=== PATIENT | female | born 1950 | race Caucasian/White ===

== ENCOUNTER 2017-02-09 15:09 | Emergency (ER) | payer OTHER ==
[~2017-02-09] VITALS: Ht 162.6 cm; Wt 100.0 kg
[~2017-02-09 15:09] MED LIST: ASPI325T PO; CLEO300C2 PO; DOXY100T PO; LISI10TA PO; LOVA40TA PO
[2017-02-09 15:15] VITALS: BP 138/77; PULSE 76; RESP 18; TEMP 98.2; O2SAT 98
--- NOTE | 2017-02-09 16:36 | PD ---
HPI Chief Complaint: Back/ Neck Pain or Injury Time Seen by Provider: 16:36 Travel History International Travel<30 days: No Contact w/Intl Traveler<30days: No Traveled to known affect area: No History of Present Illness HPI 66-year-old female presents to the emergency Department with complaint of low back pain 4 weeks. Denies new or recent injury. She says 4 weeks ago she picked up her 12 pound dog and had sudden onset of low back pain. She has been to the emergency department and x-rays were done which were negative per the patient. She is also followed up with her primary care provider, Dr. Chow, who increased her tramadol which is still not working. She said she has received an injection of an anti-inflammatory in the ER which did nothing for her pain. She has tried taking tramadol, gabapentin, and a muscle relaxer with no relief of pain. She has history of bulging disks in her lower back and low back surgery in [address] Hua. She reports paresthesias to her left lower extremity that are unchanged from previous paresthesias. She denies loss of sensation, decreased range of motion to bilateral lower extremities. Reports decreased strength to bilateral lower extremities. Says she is having difficulty ambulating secondary to the pain. Denies dysuria, urgency, frequency , hematuria. Said she had a urinalysis done as outpatient one week ago which was negative for infection. Denies IV drug use. Denies cancer. Denies fever, chills, nausea, vomiting, abdominal pain. Denies encopresis, incontinence, saddle anesthesias. Says she's been using a cane and a walker for support at home. Allergies to Bactrim, bee stings, Cipro, morphine, penicillin. Dr. Chow is primary care provider. No other modifying factors or associated signs and symptoms. 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") Cardiac Catheterization: No Cardiovascular Problems: No High Cholesterol: Yes Chemotherapy: No Congestive Heart Failure: No Diabetes: No Diminished Hearing: No Endocrine: No Gastrointestinal Disorders: No Glaucoma: No Genitourinary: No Hepatitis: No Hiatal Hernia: No Hypertension: Yes Immune Disorder: No Implanted Vascular Access Dvce: No Musculoskeletal: Yes Neurologic: No Psychiatric: No Reproductive: No Respiratory: Yes Immunizations Current: No Myocardial Infarction: No Radiation Therapy: No Thyroid Disease: No Menopausal: Yes : 1 Para: 1 Tubal Ligation: Yes Past Surgical History Abdominal Surgery: No Cardiac Surgery: No Coronary Artery Bypass Graft: No Ear Surgery: No Endocrine Surgery: No Eye Surgery: No Genitourinary Surgery: No Gynecologic Surgery: Yes (TUBAL LIGATION) Neurologic Surgery: No Oral Surgery: No Thoracic Surgery: No Tonsillectomy: Yes Other Surgery: Yes (LEFT CAROTID GLAND REMOVAL) Social History Alcohol Use: No Tobacco Use: No Substance Use: No Allergies-Medications (Allergen,Severity, Reaction): Coded Allergies: Bactrim (Verified Allergy, Severe, RASH,ITCHING, 08/15/11) Bee Sting (Verified Allergy, Severe, Anaphylaxis, 08/15/11) Cipro (Verified Allergy, Severe, RASH, 08/15/11) Morphine (Verified Adverse Reaction, Severe, LEG SHAKING, 08/15/11) Penicillin (Verified Adverse Reaction, Severe, FAINTED., 08/15/11) Reported Meds & Prescriptions Reported Meds & Active Scripts Active Naproxen 500 Mg Tab 500 Mg PO BID 7 Days Lortab (Hydrocodone-Acetaminophen) 5-325 Mg Tab 1 Tab PO Q4-6H PRN Doxycycline Hyclate 100 mg (Doxycycline Hyclate) 100 Mg Tab 100 Mg PO BID Cleocin (Clindamycin HCl) 300 Mg Cap 300 Mg PO QID Reported Aspirin 325 mg (Aspirin) 325 Mg Tab 325 Mg PO DAILY Lisinopril/Hctz 10 mg/12.5 mg 10 mg/12.5 mg Tab 1 Tab PO DAILY Lovastatin 40 Mg Tab 40 Mg PO DAILY Review of Systems Except as stated in HPI: all other systems reviewed are Neg Physical Exam Narrative GENERAL: Well-nourished, well-developed female patient, in no acute distress; tearful and appears painful SKIN: Warm and dry. Midline surgical scar to the lumbar area noted. HEAD: Atraumatic. Normocephalic. EYES: Pupils equal and round. No scleral icterus. No injection or drainage. ENT: Mucosa pink and moist. Airway patent. NECK: Trachea midline. CARDIOVASCULAR: Regular rate. RESPIRATORY: No accessory muscle use. GASTROINTESTINAL: Abdomen soft, non-tender, nondistended. Positive bowel sounds. No hepato-splenomegaly, or palpable masses. No guarding. MUSCULOSKELETAL: Bilateral lower extremities supple and non-tense with 2+ pedal pulses and sensory intact; with full range of motion and 5/5 strength. Unsteady at bedside with weight bearing. Sitting up in bed at 90. No obvious deformities. No clubbing. No cyanosis. No edema. BACK: Midline point tenderness on palpation of the lumbar spine. Tenderness on palpation of right iliosacral area. No obvious deformities. NEUROLOGICAL: Awake and alert. Oriented 3. No obvious cranial nerve deficits. Motor grossly within normal limits. Normal speech. Moves all extremities. 5/5 strength to all extremities. Sensory intact. PSYCHIATRIC: Appropriate mood and affect; insight and judgment normal. Data Data Last Documented VS Vital Signs Date Time Temp Pulse Resp B/P Pulse Ox O2 Delivery O2 Flow Rate FiO2 02/09/17 15:15 98.2 76 18 138/[address] Lumb Spine W/O Contrast (02/09/17 ) Ketorolac Inj (Toradol Inj) (02/09/17 16:45) Orphenadrine Inj (Norflex Inj) (02/09/17 16:45) MDM Medical Decision Making Medical Screen Exam Complete: Yes Emergency Medical Condition: Yes Medical Record Reviewed: Yes Differential Diagnosis Acute exacerbation of chronic low back pain, sciatica, Narrative Course 66-year-old female with midline tenderness on palpation of the lumbar spine. The patient is unsteady on her feet with bearing weight at the bedside. She is tearful and appears painful. No new or recent injury. He of lumbar surgery in 2008. History of bulging disks. Patient has been previously seen and evaluated for this same complaint in the ER and by her primary care provider, Dr. Chow. The ER did x-rays which were negative per the patient. Her primary care provider told her she had sciatica and increased her tramadol. She says she's had never had back pain like this before. 1900: CT concludes: 1. Severe bilateral foraminal narrowing at L5-S1. 2. Mild spinal stenosis and mild to moderate bilateral foraminal narrowing at L4 -L5. 3. Mild spinal stenosis and bilateral foraminal narrowing at L2-L3. 4. Mild bilateral foraminal narrowing at L1-L2 and L3-L4. 5. Grade I anterolisthesis of L5 in relation to S1 with bilateral pars defects at L5. 6. Incidental note is made of uncomplicated sigmoid diverticulosis Results of the CT scan were discussed with the patient and I discussed the incidental finding of diverticulosis with the patient. She was provided a copy of the CT report. I discussed the patient with Dr. Henry, my attending physician , and he recommended Lortab and naproxen for pain control for outpatient. 190: The patient was able to stand at the bedside and take a few steps with support. I discussed and asked the patient if she felt like she needed to be admitted for intractable back pain and she said she would rather go home and does not want to be admitted at this time. She has a cane and a walker at home for support. Lortab, naproxen prescribed for home. Instructed patient to stop taking tramadol she takes the Lortab and she verbalized understanding and agreement. Patient verbalizes understanding and agreement with treatment plan. Patient is medically cleared and stable for discharge. Discussed reasons to return to the emergency department. Instructed patient to follow up with primary care provider. Patient agrees with treatment plan. The patients vital signs are stable and the patient is stable for outpatient follow-up and treatment. Patient discharged home, stable and in no acute distress. Diagnosis Primary Impression: Low back pain with right-sided sciatica Qualified Code: M54.41 - Low back pain with right-sided sciatica, unspecified back pain laterality, unspecified chronicity Referrals: Primary Care Physician Patient Instructions: Acute Low Back Pain (ED), General Instructions, Sciatica (ED) Additional Instructions: Stopped taking tramadol while you take Lortab for your back pain Naproxen as prescribed Heating pad and/or ice to affected area to reduce pain Avoid aggravating activities; increase activity as tolerated Walker and/or cane as needed for support Follow-up with primary care provider Return to emergency department immediately with worsening of symptoms Med/Other Pt SpecificInfo: Prescription(s) given Scripts Naproxen 500 Mg [id number] Mg PO BID 7 Days Ref 0 Prov:Judi Galloway 02/09/17 Hydrocodone-Acetaminophen (Lortab)5-325 Mg Tab1 Tab PO Q4-6H PRN (PAIN) #12 TAB Ref 0 Prov:Juanito Henry MD 02/09/17 Disposition: 01 DISCHARGE HOME Condition: Stable Judi Galloway Feb 09, 2017 16:36
[2017-02-09] MEDS ORDERED: KETOROLAC TROMETHAMINE 60 MG/2 ML (IM) VIAL IM ONE (16:45)
[2017-02-09] MEDS ORDERED: ORPHENADRINE INJ 60 MG/2 ML AMP IM ONE (16:45)
--- NOTE | 2017-02-09 18:43 | RADRPT ---
EXAM DATE/TIME: 02/09/2017 17:46 [facility] COMPARISON: No previous studies available for comparison. INDICATIONS : Lower back pain. Bending injury. RADIATION DOSE: 49.84 CTDIvol (mGy) MEDICAL HISTORY : Carcinoma, basal cell. SURGICAL HISTORY : Lumbar discectomy. ENCOUNTER: Initial ACUITY: 1 day PAIN SCALE: 9/10 LOCATION: Lower back TECHNIQUE: Volumetric scanning of the lumbar spine was performed. Multiplanar reconstructions in the sagittal, coronal and oblique axial planes were performed. Using automated exposure control and adjustment of the mA and/or kV according to patient size, radiation dose was kept as low as reasonably achievable t o obtain optimal diagnostic quality images. FINDINGS: There is grade I anterolisthesis of L5 in relation to S1 with bilateral pars defects at L5. Signific ant disc space narrowing is noted at L5-S1. Diffuse disc osteophyte complex is also noted at L5-S1. Mild degenerative changes are noted throughout the remainder of the lumbar spine. There is no acute compression fracture. Mild scoliosis of the lumbar spine is noted. T12-L1: There is no significant spinal stenosis, disc bulge or herniation. The bilateral neural foramina are patent. The facet joints and ligaments are unremarkable. L1-L2: There is a minimal diffuse disc bulge as well as facet joint hypertrophy bilaterally resulting in mil d bilateral foraminal narrowing but no spinal stenosis. No focal disc herniation is noted. L2-L3: There is mild spinal stenosis and bilateral foraminal narrowing secondary to a combination of diffuse disc bulge, facet joint hypertrophy and ligamentous laxity. No focal disc herniation is noted. L3-L4: Mild bilateral foraminal narrowing is noted secondary to mild diffuse disc bulge. No spinal stenosis is noted. No focal disc herniation is noted. The facet joints and ligaments are unremarkable. L4-L5: Mild spinal stenosis and mild to moderate bilateral foraminal narrowing is noted secondary to diffuse disc bulge, facet joint hypertrophy and ligamentous laxity. No focal disc herniation is noted. L5-S1: There is grade I anterolisthesis of L5 in relation to S1 as well as bilateral pars defects at this le mildred. Severe bilateral foraminal narrowing is noted secondary to diffuse disc osteophyte complex and facet joint hypertrophy bilaterally. No spinal stenosis is noted. No focal disc herniation is noted . CONCLUSION: 1. Severe bilateral foraminal narrowing at L5-S1. 2. Mild spinal stenosis and mild to moderate bilateral foraminal narrowing at L4-L5. 3. Mild spinal stenosis and bilateral foraminal narrowing at L2-L3. 4. Mild bilateral foraminal narrowing at L1-L2 and L3-L4. 5. Grade I anterolisthesis of L5 in relation to S1 with bilateral pars defects at L5. 6. Incidental note is made of uncomplicated sigmoid diverticulosis. Jesu Gusman MD on February 09, 2017 at 18:24 Board Certified Radiologist. This report was verified electronically.
[2017-02-09] MEDS ORDERED: HYDR-3533 PO (18:54)
[2017-02-09] MEDS ORDERED: NAPR500T PO (19:06)
== END 2017-02-09 19:19 | disposition home or self-care (01) ==
LOC: NETRI 15:09
DX: M54.41 Lumbago with sciatica, right side (principal)
CPT/HCPCS: 72131; 96372; 99283; J1885; J2360

== ENCOUNTER 2018-08-17 06:23 | Inpatient (IN) ==
[2018-08-17] MEDS ORDERED: Sugammadex Inj 200 MG/2 ML Vial IV.PUSH ONE (06:43)
[2018-08-17] MEDS ORDERED: HYDROmorphone PF Inj 2 MG/ML Vial ONE (06:44)
[2018-08-17] MEDS ORDERED: Propofol Inj 500 MG/50 ML Vial ONE (06:44)
[2018-08-17] MEDS ORDERED: Metoprolol Tartrate 25 MG Tablet PO ONE (06:47)
[2018-08-17] MEDS ORDERED: Chlorhexidine Gluconate 2% 1 Pack (2 Cloths) TOPICAL ONE (06:47)
[2018-08-17] MEDS ORDERED: ceFAZolin 2 GM Premix Inj 2 GM/50 ML PIGGYBACK IV.SIG SCH (07:00)
[2018-08-17] MEDS ORDERED: Sodium Chlor 0.9% Inj 500 ML IV.SIG SCH (07:00)
[2018-08-17] MEDS ORDERED: Thrombin Topical Soln 5,000 UNIT Vial TOPICAL ONE (07:02)
[2018-08-17] MEDS ORDERED: Bupivacaine/Epinephrine 0.5% Inj 50 ML Vial ONE (07:02)
[2018-08-17] MEDS ORDERED: Gelatin Size 100 Topical Foam ONE (07:03)
[2018-08-17] MEDS ORDERED: Artificial Tears Opth Oint 3.5 GM Tube ONE (07:04)
[2018-08-17] MEDS ORDERED: Ketamine Inj 50 MG/5 ML Syringe IV.PUSH ONE (07:26)
[2018-08-17 07:55] LABS: Albumin 3.6 g/dL (3.4-5.0); Anion Gap 8 meq/L (5-15); Aspartate Aminotransferase 23 U/L (15-37); Bilirubin,Urine Negative (Negative); Blood Urea Nitrogen 18 mg/dL (7-18); Calcium 9.1 mg/dL (8.5-10.1); Carbon Dioxide 27.3 meq/L (21.0-32.0); Chloride 108 meq/L (98-107); Clarity,Urine Clear (Clear); Color,Urine Yellow (Yellw/Straw); Glomerular Filtration Rate 58 mL/min (>89); Glucose,Random 89 mg/dL (74-106); Glucose,Urine (UA) Negative (Negative); Leukocyte Esterase,Urine Small (Negative); Mucus,Urine Few /lpf (Occasional); Nitrite,Urine Negative (Negative); Potassium 3.6 meq/L (3.5-5.1); Prothrombin Time 10.1 sec (9.8-11.6); Sodium 143 meq/L (136-145); Specific Gravity,Urine 1.017 (1.002-1.035); Squamous Epithelial Cell,Urine 1 /hpf (0-5)
[2018-08-17 07:56] LABS: Alanine Aminotransferase 24 U/L (10-53)
[2018-08-17 07:58] LABS: Alkaline Phosphatase 94 U/L (45-117); Total Protein 7.4 g/dL (6.4-8.2)
[2018-08-17] MEDS ORDERED: Lidocaine PF 1% Inj 5 ML Syringe OTHER ONE (08:30)
[2018-08-17] MEDS ORDERED: Bisacodyl 10 MG Supp RECTAL PRN (13:22)
[2018-08-17] MEDS ORDERED: fentaNYL Citrate Inj 100 MCG/2 ML Ampul ONE (13:27)
--- NOTE | 2018-08-17 13:34 | P.OP ---
Preoperative Diagnosis: Post laminectomy spondylolisthesis Postoperative Diagnosis: Post laminectomy spondylolisthesis Date of procedure: 08/17/18 Procedure: L5-S1 redo left laminectomy, interbody arthrodhesis using PEEK cage and autologous bone graft, L5-S1 instrumental fixation using transpedicular screws and rods, L5-S1 posterolateral fusion using autologous bone graft and demineralized bone matrix. Microsurgical dissection Anesthesia: HERNANDEZA Surgeon: Barron Bolivar MD Engineer Sergeant: Funmilayo Puente Pathology: none sent Operation and Findings: INDICATIONS FOR THE SURGICAL PROCEDURE The patientMs Verdugo is a 67 year old female who presented with intractable mechanical back pain and timoteo evidence of lower extremity radiculopathy. She failed maximum nonsurgical management including multiple modalities of conservative treatment as well as pain management interventions by an interventional pain specialist. A surgical decompression and arthrodhesis were indicated as a last resort. The [id number] details of the procedure, indications, alternatives, risks and potential complications were fully discussed with the patient. The patient fully understood. All his questions were answered. No guarantees were given. The patient voiced requesting the procedure and provided informed consents. He was offered the alternative of delaying the procedure and continuing with nonsurgical management. DETAILS OF THE SURGICAL PROCEDURE Prior to the procedure, the surgical incision was marked in the preoperative surgical holding room, and the procedure, risks, and potential complications revisited with the patient. Placement of electrodes for intraoperative neurophysiological monitoring was completed. The patient was taken to the operative room, and following induction of general anesthesia, endotracheal intubation was performed. A Shepherd catheter, bilateral WILNER hose and sequential compression devices were placed and kept throughout the procedure. The patient was positioned prone, over a Phil table over a Jeancarlos frame. All pressure in the preoperative surgical holding room points were carefully padded with eggcrate and gel mattress. The eyes were tapped shut after ointment was applied by the anesthesiologist to prevent corneal abrasion. A Sarah hugger was placed over the exposed lower body to maintain control of the core body temperature. The electrophysiological team placed the needles and electrodes in their proper location and baseline SSEP's and motor evoked potentials were registered. The entrance to each pedicles was marked using a C arm. The lumbar region was prepped and draped in the usual sterile fashion. The surgical procedure was performed in several steps as follow: SURGICAL APPROACH Once the patient was positioned, a localizing cross-table lateral x-ray was performed with a C-arm. Two paramedian small incisions were outlined on the skin approximately 3cm from the midline. The skin incisions were made with a # 10 blade. Small bleeders were controlled with the cautery. The dissection was then carried out into deper planes and through the thoracolumbar fascia with a Bovie. The intermuscular septum was identified and the myscles were blunted dissected along the septum. The facets and transverse process of L5 and S1 were exposed and the proper anatomical landmarks were identidied. A microsurgical self-retaining retractor was placed on the incision, and a localizing lateralizing cross-table x-ray was performed with an instrument underneath a lamina of the lumbar spine. There was a bilateral pars defect with gross instability of the bony structures. INSTRUMENTAL FIXATION At this point in the procedure, placement of bilateral transpedicular screws was necessary for stabilization of the spine. Initially, the entry point for the screw was selected anatomically at the junction of the facet, with the transverse process, and the pars interarticularis at L5 and at the sacrum. This was started with a Giamshetti needle followed by the use of a plaza wire. A tap was used to create the threads for the screws. Finally bilateral transpedicular screws were carefully placed bilaterally at L5 and S1 under fluoroscopic visualization. An appropriate purchase was achieved with all screws. The position of each screw was assessed anatomically with an AP, lateral , oblique Xrays. An intraoperative scan view of the spine was then performed using the iso-centric c-arm. Each screw was then assessed electrophysiologically with a nerve stimulator. SURGICAL DECOMPRESSION There was significant mass effect with compression of the neural structures. In order to relieve neural compression, it was necessary to perform a decompressive laminectomy, with decompression of the spinal canal and bilateral lateral recesses. Note that the scope of such decompression was significantly more extensive than the minimal exposure necessary to perform an interbody fusion, as there was extreme facet arthropathy with near complete collapse of the disk spaces and severe stenosis cause by the hyperthrophic joint facets. At this point of the procedure the operative microscope was draped in the usual sterile fashion and brought to the field. The rest of the surgical procedure was performed using microdissection technique with the exception of the closure. Under the operating microscope, a left decompressive laminectomy was carried out at L5-S1 as follow: Once the level was confirmed, the margins of the prior laminectomy were exposed. There was extensive scar tissue from the prior surgery. Once the bony margins were exposed, a laminectomy was performed extending slightly the prior opening using the TPS drill with an AM-8 drill bit. A medial facetectomy was performed and the superior free border of the ligamentum flavum was dissected with a ligament dissector and removed with a thin footplate 2 mm Kerrison. The ligament was very adherent to the dural sac and during the dissection, ans extreme care was taken during the dissection. The exiting nerve roots were identified, and a wide foraminotomy was performed with a Kerrison in their trajectory towards the neural foramen. Epidural veins located laterally to the dural sac were coagulated with the bipolar cautery, and then incised using microscissors. Gentle medial retraction of the dural sac allowed me to expose the disc space for the discectomy. Upon completion of the discectomy, an excellent decompression of the neural structures was achieved. Increased motion was noted thorough the procedure, which was consistent with mechanical instability. INTERBODY ARTHRODHESIS In order to correct the narrowing of the disk space and maintain distraction of the space, and to achieve a solid interbody fusion, it was necessary the insertion of an interbody device into the disk space. Otherwise, the disk space would collapse, compromising the result of the surgical procedure. At this point of the procedure, the annulus fibrosus of the disk was carefully coagulated with a bipolar cautery and incised using an 11 bladed knife. Then, a microdiscectomy was carried out in a standard fashion using a combination of straight and up-biting pituitary forceps. A reverse angle curette was applied underneath the posterior longitudinal ligament, and used to push the disk fragments into the disk space, so they can be safely removed with a pituitary forceps. Once the discectomy was completed, it was necessary to decorticate the endplates, in order to eliminate the cartilaginous endplate and to expose healthy bone appropriate to perform the interbody fusion. The endplates at L5- S1 were then thoroughly decorticated using increasing size bone marjorie and ring curets, eliminating the cartilaginous fragments from both, the superior and inferior endplates. A disk space distractor was applied to the pedicle screws and gentle distraction was applied. This maneuver was assisted by the use of a disk distractor. Increased motility was noted at the disk, which was consistent with instability due to facet arthropathy. Once a thorough preparation of the disk space was achieved, the disk space was irrigated with antibiotic solution, and the interbody fusion was performed by carefully impacting PPEK cages filled with autologous bone graft. The use of several shoe impactors with different angulation, allowed me for an excellent, proper position of the interbody cage. A solid position of the cage with good purchase was achieved. The position of the cages were assessed anatomically with a probe and radiologically with the C-arm. POSTEROLATERAL FUSION The posterolateral fusion is a critical component to the procedure, to prevent future fatigue and failure of the instrumental fixation. Initially, the transverse processes of the vertebral bodies, lateral surface of the facets and the lateral gutters of the spine were carefully cleaned, eliminating all soft tissue and muscle attachments. The area was then irrigated with a large amount of antibiotic solution. Subsequently, the transverse processes, lateral surface of the facets, and lateral gutters of the spine were thoroughly decorticated using the TPS drill with a 5mm cutting rafa, exposing cancellous bone, in preparation for the posterolateral fusion. The incision was again irrigated with antibiotic solution. Then, the posterolateral fusion was then performed by carefully packing the lateral gutters of the spine at L5-S1 with autologous bone combined with demineralized bone matrix. I packed as much bone as possible. COMPLETION OF THE INSTRUMENTATION AND CLOSURE The rods were brought to the field, applied to all the screws, and the screw caps were sequentially applied. Compression was performed between the pedicle screws, and final tightening of the screws was completed using a torque wrench. The incision was again thoroughly irrigated with several liters of antibiotic solution, and hemostasis secured with the bipolar cautery. A Valsalva Maneuver performed by the anesthesiologist failed to show any evidence of cerebrospinal fluid leak or bleeding. A 7 mm Phil-Chang drain was left in the epidural space and externalized through a separate stab incision. The incision was then closed in planes. 0 Vicryl was used in an interrupted fashion to close the thoracolumbar fascia and the superficial fascia. The subcutaneous tissue was then approximated using 3-0 Vicryl in an interrupted fashion. Special care was taken to avoid space. The skin was then closed with 4-0 Vicryl in a running, subcuticular fashion. Each plane of closure was irrigated with antibiotic solution. At the end of the procedure the sponge, needle and instrument counts were all correct. Estimated blood loss was 100 cc. No blood transfusion was given. The entire procedure was performed using continuous electrophysiological monitoring of the somatosensorial evoked potentials and EMG. The patient received prophylactic antibiotics. The patient was then extubated and transferred to the recovery room in stable condition.
--- NOTE | 2018-08-17 13:39 | XR ---
EXAM DATE: 08/17/2018 12:00 AM EDT AGE/SEX: 67 years / Female INDICATIONS: Hardware placement, laminectomy, discectomy. CLINICAL DATA: This is the patient's initial encounter. Patient reports that signs and symptoms have been present for 1 day and indicates a pain score of Nonresponsive. MEDICAL/SURGICAL HISTORY: None. None. COMPARISON: [facility], CT LUMBAR SPINE W/O CONTRAST, 04/26/2018. . FINDINGS: Lower lumbar spine fusion is noted at L5 and S1. Hardware appears to be in good position. There is st able grade I-II anterolisthesis of L5 in relation S1. CONCLUSION: Status post lower lumbar spine fusion at L5 and S1. Electronically signed by: Jesu Gusman MD 08/17/2018 1:37 PM EDT
[2018-08-17] MEDS ORDERED: Naloxone Inj 0.4 MG/ML Vial IV.PUSH PRN (14:15)
[2018-08-17] MEDS ORDERED: HYDROmorphone PCA Inj 6 MG/30 ML PCA.VIAL PCA ONE (14:27)
[2018-08-17] MEDS: HYDROmorphone PCA Inj 6 MG/30 ML PCA.VIAL PCA PRN ×3 (14:30→22:05)
--- NOTE | 2018-08-17 15:23 | P.CONIM ---
History of Present Illness Service: [facility] Consult date: 08/17/18 Requesting Physician: Barron Bolivar Reason for Consult: MEDICAL MANAGEMENT Primary Care Provider: Jamey Feliciano Chief Complaint: SP LUMBAR SURGERY History of Present Illness: Patient is a 67-year-old female who underwent an L5-S1 laminectomy mesial facetectomy foraminotomy with microsurgical resection of the disc, interbody arthrodesis using a peek cage with autologous bone graft and instrumentation fixation using transpedicular screws and rods by Dr. Bolivar today we have now been consulted to help with medical management. 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 hypercholesterolemia hypertension polyneuropathy and dermatitis as well as history of a left carotid gland removal and tubal ligation Review of Systems All other systems reviewed negative except as stated in HPI PMFSH - History History Provided By: Patient - Medical History Medical History: Medical History (Last Reviewed 08/17/18 @ 15:17 by Bahman Bruce DO) Hyperlipidemia Polyneuropathy Arthritis Back pain History of heart attack Hx of skin cancer, basal cell Hypertension Stage 3 chronic kidney disease - Surgical History Surgical History: Surgical History (Last Reviewed 08/17/18 @ 15:18 by Bahman Bruce DO) History of left-sided carotid endarterectomy History of tonsillectomy History of parotid gland removal Hx of tubal ligation - Family History Family History: Family History (Last Updated 08/17/18 @ 15:18 by Bahman Bruce DO) Other Family history of hypertension - Social History I have reviewed the patient's Social History: Yes - Tobacco History Second Hand Smoke Exposure: No Tobacco Use In Past 30 Days: No Smoking Status: Never smoker - Alcohol History How Often Do You Have a Drink Containing Alcohol: Never - Substance Use History Substance History: No History of Abuse - Travel History Recent Travel in the [place] Within the Last 8 Weeks: No Recent Travel Out of the Country Within the Last 8 Weeks: No Medications and Allergies Active Medications: Active Medications Hydrocodone Bitart/Acetaminophen ([place] 10/325) 1 tab PO Q4H PRN PRN Reason: Pain Scale 1 To 5 Al Hydroxide/Mg Hydroxide (Milk Of Magnesia Liq) 30 ml PO Q12H PRN PRN Reason: Mild Constipation Albuterol (Albuterol Neb (Prn)) 2.5 mg NEB Q4HR NEB PRN PRN Reason: WHEEZING Bisacodyl (Dulcolax Supp) 10 mg RECTAL DAILY PRN PRN Reason: SEVERE CONSITIPATION Clonidine HCl (Catapres) 0.1 mg PO Q6H PRN PRN Reason: SYS BP GREATER THAN 170 MMHG Sodium Chloride (Ns Inj) 500 mls @ 30 mls/hr IV.SIG .Q10H SIMIN Lactated Ringer's (Lr 1000 Ml Inj) 1,000 mls @ 30 mls/hr IV.SIG .Q24H [facility] Stop: 08/18/18 06:59 Last Admin: 08/17/18 07:05 Dose: 30 mls/hr Cefazolin Sodium/Dextrose (Ancef 2 Gm Premix Inj) 2 gm in 50 mls @ 150 mls/hr IV.SIG SUPPORT TEACHER [facility] Stop: 08/17/18 18:00 Last Admin: 08/17/18 08:51 Dose: 150 mls/hr Vancomycin HCl 1,000 mg/ (Sodium Chloride) 250 mls @ 250 mls/hr IV.SIG Q12H [facility] Stop: 08/18/18 02:59 Hydromorphone/Sodium Chloride (Dilaudid Ad Copy Writer Inj) 6 mg in 30 mls @ 0 mls/hr MILL MACHINIST UNSCH PRN PRN Reason: per MILL MACHINIST parameters Lactulose (Lactulose Liq) 30 ml PO DAILY PRN PRN Reason: SEVERE CONSITIPATION Losartan Potassium (Cozaar) 50 mg PO DAILY [facility] Miscellaneous Information ([facility]) 1 each OTHER UNSCH PRN PRN Reason: SEE LABEL COMMENTS Stop: 08/18/18 13:17 Multivitamins (Theragran) 1 tab PO DAILY [facility] Naloxone HCl (Narcan Inj) 0.4 mg IV.PUSH PRN PRN PRN Reason: SEE LABEL COMMENTS Non-Formulary Medication (Cholecalciferol (Vitamin D3) [Vitamin D3]) 5,000 unit PO EVERY OTHER DAY [facility] Non-Formulary Medication (Hydrochlorothiazide [Hydrochlorothiazide]) 12.5 mg PO DAILY [facility] Non-Formulary Medication (Calcium Carbonate-Vitamin D3 [Calcium 600 + D(3)]) 1 cap PO DAILY [facility] Ondansetron HCl (Zofran Inj) 4 mg IV.PUSH Q6H PRN PRN Reason: NAUSEA OR VOMITING Pantoprazole Sodium (Protonix) 40 mg PO DAILY SIMIN Senna/Docusate Sodium (Nicci-Colace) 1 tab PO BID SIMIN Sennosides (Senokot) 17.2 mg PO Q12H PRN PRN Reason: Moderate Constipation Tizanidine HCl (Zanaflex) 4 mg PO TID PRN PRN Reason: Pain Allergies Allergy/AdvReac Type Severity Reaction Status Date / Time bee venom protein (honey bee) Allergy Severe Anaphylaxis Verified 08/17/18 06:53 ciprofloxacin Allergy Severe RASH Verified 08/17/18 06:53 sulfamethoxazole Allergy Severe RASH,ITCHIN Verified 08/17/18 06:53 G trimethoprim Allergy Severe RASH,ITCHIN Verified 08/17/18 06:53 G morphine AdvReac Severe LEG SHAKING Verified 08/17/18 06:53 penicillin G AdvReac Severe FAINTED. Verified 08/17/18 06:53 lisinopril AdvReac Rash Verified 08/17/18 06:53 Home Medications Medication Instructions Recorded Confirmed Type aspirin [Aspirin Low Dose] 81 mg PO DAILY 08/16/18 08/16/18 History calcium carbonate-vitamin D3 1 cap PO DAILY 08/16/18 08/17/18 History [Calcium 600 + D(3)] cholecalciferol (vitamin D3) 5,000 unit PO EVERY OTHER DAY 08/16/18 08/17/18 History [Vitamin D3] hydrochlorothiazide 12.5 mg PO DAILY 08/16/18 08/17/18 History losartan 50 mg PO DAILY 08/16/18 08/17/18 History multivitamin [Daily Multiple] 1 tab PO DAILY 08/16/18 08/16/18 History tizanidine 4 mg PO TID PRN 08/16/18 08/17/18 History tramadol 50 mg PO Q4-6H PRN 08/16/18 08/17/18 History Exam Vital signs: Vital Signs 08/17/18 07:31 Temperature 98.3 F Pulse Rate 62 Respiratory Rate 20 Blood Pressure 154/80 H Pulse Oximetry 98 Intake & Output 08/16/18 08/17/18 08/17/18 18:59 06:59 18:59 Intake Total 1600 / 1600 Output Total 1100 / 1100 Balance 500 / 500 Weight 83.3 kg Intake: Anesthesia Amount 1600 / 1600 Output: Estimated Blood Loss 100 / 100 Urine Amount (Catheter) 1000 / 1000 Indwelling Urethral Catheter 1000 / 1000 Other: Weight On Admission 83.3 kg Narrative: GENERAL: Awake alert talkative and cooperative. Lethargic post surgery SKIN: Warm and dry. HEAD: Atraumatic. Normocephalic. EYES: Pupils equal and round. No scleral icterus. No injection or drainage. EOMI ENT: No nasal bleeding or discharge. Mucous membranes pink and moist. Tongue is midline NECK: Trachea midline. No JVD. Supple CARDIOVASCULAR: Regular rate and rhythm. S1-S2 no S3 or S4 RESPIRATORY: No accessory muscle use. Clear to auscultation. Breath sounds equal bilaterally. GASTROINTESTINAL: Abdomen soft, non-tender, nondistended. Hepatic and splenic margins not palpable. MUSCULOSKELETAL: Extremities without clubbing, cyanosis, or edema. No obvious deformities. NEUROLOGICAL: Awake and alert. No obvious cranial nerve deficits. Motor grossly within normal limits. Five out of 5 muscle strength in the arms and legs. Normal speech. Left lower extremity weakness 4 out of 5 PSYCHIATRIC: Appropriate mood and affect; insight and judgment normal. Results - Labs CBC & Chem 7: 08/17/18 07:05 Labs: Laboratory Results - last 24 hr 08/17/18 08/17/18 08/17/18 07:05 07:05 07:05 PT INR APTT Sodium 143 Potassium 3.6 Chloride 108 H Carbon Dioxide 27.3 Anion Gap 8 BUN 18 Creatinine 0.96 Estimated GFR 58 L Random Glucose 89 Calcium 9.1 Total Bilirubin 0.4 AST 23 ALT 24 Alkaline Phosphatase 94 Total Protein 7.4 Albumin 3.6 Urine Color Yellow Urine Clarity Clear Urine pH 5.0 Ur Specific [place] 1.017 Urine Protein Negative Urine Glucose (UA) Negative Urine Ketones Negative Urine Occult Blood Small H Urine Nitrate Negative Urine Bilirubin Negative Urine Urobilinogen Less than 2 Ur Leukocyte Esterase Small H Urine RBC 1 Urine WBC 13 H Ur Squamous Epith Cells 1 Urine Mucus Few H Micro UA Comment Culture indicated Ur Microscopic Review Not Reportable Urine Culture Comments Culture indicated Blood Type A Positive Blood Type Recheck Required Antibody Screen Negative 08/17/18 08/17/18 07:05 07:05 PT 10.1 INR 1.0 APTT 24.5 Sodium Potassium Chloride Carbon Dioxide Anion Gap BUN Creatinine Estimated GFR Random Glucose Calcium Total Bilirubin AST ALT Alkaline Phosphatase Total Protein Albumin Urine Color Urine Clarity Urine pH Ur Specific [place] Urine Protein Urine Glucose (UA) Urine Ketones Urine Occult Blood Urine Nitrate Urine Bilirubin Urine Urobilinogen Ur Leukocyte Esterase Urine RBC Urine WBC Ur Squamous Epith Cells Urine Mucus Micro UA Comment Ur Microscopic Review Urine Culture Comments Blood Type Blood Type Recheck Antibody Screen - Imaging Impressions Lumbar Spine X-Ray 08/17/18 00:00 CONCLUSION: Status post lower lumbar spine fusion at L5 and S1. Assessment and Plan - Plan Status post L5-S1 laminectomy, mesioofacetectomy, foraminotomy, with microsurgical resection of the disc, interbody arthrodesis using a peek cage with autologous bone graft, and instrumental fixation using transpedicular screws and rods -DVT prophylaxis per neurosurgery -Pain control per neurosurgery -Physical therapy and occupational therapy to eval and treat Hypertension resume home medications hyperlipidemia resume Home medications Chronic arthritis continue on pain control as needed Chronic kidney disease will get home medications adjusted and get a.m. labs History of skin cancer stable DVT prophylaxis per neurosurgery GI prophylaxis per Pepcid Code Status: Full code Discussed Condition With: RN and patient Discharge Planning: When cleared by neurosurgery for discharge
[2018-08-17] MEDS: Senna/Docusate Sodium 8.6/50 MG Tablet PO SCH (20:20)
[2018-08-17] MEDS: Famotidine 20 MG Tablet PO SCH (20:20)
[2018-08-17] MEDS ORDERED: Vancomycin Inj 1,000 MG in Sodium Chlor 0.9% Inj 250 ML IV.SIG SCH (23:00)
[2018-08-18] MEDS ORDERED: Vancomycin Inj 1,000 MG in Sodium Chlor 0.9% Inj 250 ML IV.SIG SCH (03:00)
[2018-08-18] MEDS: HYDROmorphone PCA Inj 6 MG/30 ML PCA.VIAL PCA PRN (05:52)
[2018-08-18 07:21] LABS: Baso % (Auto) 0.2 % (0.0-2.0); Eos % (Auto) 0.1 % (0.0-4.0); Hematocrit 33.7 % (35.0-46.0); Hemoglobin 11.5 gm/dL (11.6-15.3); Lymph # (Auto) 2.7 th/mm3 (1.0-4.8); Lymph % (Auto) 21.4 % (9.0-44.0); Mean Corpuscular HGB Conc 34.1 % (32.0-36.0); Mean Corpuscular Hemoglobin 30.7 pg (27.0-34.0); Mean Corpuscular Volume 89.9 fL (80.0-100.0); Mono # (Auto) 0.7 th/mm3 (0.0-0.9); Mono % (Auto) 5.9 % (0.0-8.0); Neut # (Auto) 9.2 th/mm3 (1.8-7.7); Neut % (Auto) 72.4 % (16.0-70.0); Platelet Count 216 th/mm3 (150-450); Red Blood Count 3.75 mil/mm3 (4.00-5.30); Red Cell Distribution Width 13.9 % (11.6-17.2); White Blood Count 12.7 th/mm3 (4.0-11.0)
[2018-08-18 07:22] LABS: Prothrombin Time 10.1 sec (9.8-11.6)
[2018-08-18 07:50] LABS: Alanine Aminotransferase 21 U/L (10-53); Alkaline Phosphatase 76 U/L (45-117); Anion Gap 7 meq/L (5-15); Aspartate Aminotransferase 17 U/L (15-37); Blood Urea Nitrogen 12 mg/dL (7-18); Calcium 8.6 mg/dL (8.5-10.1); Carbon Dioxide 30.5 meq/L (21.0-32.0); Chloride 107 meq/L (98-107); Free T4 (Free Thyroxine) 1.13 ng/dL (0.76-1.46); Glomerular Filtration Rate 70 mL/min (>89); Glucose,Random 109 mg/dL (74-106); Phosphorus 3.3 mg/dL (2.5-4.9); Potassium 3.6 meq/L (3.5-5.1); Sodium 144 meq/L (136-145); Thyroid Stimulating Hormone 0.409 uIU/mL (0.358-3.740); Total Protein 6.1 g/dL (6.4-8.2)
--- NOTE | 2018-08-18 09:08 | P.PNNS ---
Subjective Interval history: s/p L5-S1 redo left laminectomy, interbody arthrodhesis using PEEK cage and autologous bone graft, L5-S1 instrumental fixation using transpedicular screws and rods, L5-S1 posterolateral fusion using autologous bone graft and demineralized bone matrix. Microsurgical dissection POD 1, moderate surgical pain with movement, controlled on PROFESSOR OF PSYCHIATRY. Physical Exam Vital signs: Vital Signs 08/17/18 13:18 08/17/18 13:30 08/17/18 13:45 Temperature 97.4 F L Pulse Rate 96 H 88 86 Respiratory Rate 16 16 16 Blood Pressure 133/60 132/58 L 118/58 L Pulse Oximetry 100 97 96 08/17/18 14:00 08/17/18 14:30 08/17/18 15:00 Temperature Pulse Rate 82 78 78 Respiratory Rate 16 16 16 Blood Pressure 117/59 L 122/61 122/62 Pulse Oximetry 96 96 96 08/17/18 19:19 08/17/18 19:20 08/17/18 19:21 Temperature 97.7 F Pulse Rate 68 Respiratory Rate 18 18 17 Blood Pressure 126/64 Pulse Oximetry 95 08/17/18 22:35 08/17/18 23:00 08/17/18 23:32 Temperature 97.7 F Pulse Rate 65 Respiratory Rate 17 17 17 Blood Pressure 114/55 L Pulse Oximetry 93 L 08/17/18 23:51 08/18/18 02:24 08/18/18 03:26 Temperature 98.0 F Pulse Rate 63 Respiratory Rate 16 17 17 Blood Pressure 115/56 L Pulse Oximetry 94 L 08/18/18 06:20 Temperature Pulse Rate Respiratory Rate 17 Blood Pressure Pulse Oximetry Intake & Output 08/17/18 08/18/18 08/18/18 18:59 06:59 18:59 Intake Total 1600 / 1600 490 / 490 Output Total 1100 / 1100 1999 Balance 500 / 500 -1510 / -1510 Weight 83.007 kg Intake: IV 250 / 250 Vancomycin Inj 1,000 MG In NS 250 / 250 Inj 250 ML @ 250 mls/hr IV.SIG Q12H [facility] Rx#:[id number] Oral 240 / 240 Anesthesia Amount 1600 / 1600 Output: Estimated Blood Loss 100 / 100 Urine Amount (Catheter) 1000 / 1000 1999 Indwelling Urethral Catheter 999 Other: Date of Last Bowel Movement 08/15/18 # Bowel Movements 0 - Urinary Catheter Management Indwelling Urethral Catheter Cath placed during this visit: yes Reason for continuing: Other continuation reason Insertion date: 08/17/18 Insertion time: 09:00 Assessment and Plan - Plan s/p L5-S1 redo left laminectomy, interbody arthrodhesis using PEEK cage and autologous bone graft, L5-S1 instrumental fixation using transpedicular screws and rods, L5-S1 posterolateral fusion using autologous bone graft and demineralized bone matrix. Microsurgical dissection POD 1, moderate postop pain, controlled on PROFESSOR OF PSYCHIATRY Plan: cont postoperative pain control - PROFESSOR OF PSYCHIATRY Dr. Bolivar requests bed rest today SCDs and TEDs for DVT prophylaxis protonix for GI prophylaxis appreciated medical assistance
[2018-08-18] MEDS: Famotidine 20 MG Tablet PO SCH ×2 (09:13→20:31)
[2018-08-18] MEDS: Senna/Docusate Sodium 8.6/50 MG Tablet PO SCH ×2 (09:13→20:31)
--- NOTE | 2018-08-18 09:13 | OTSOAPIP ---
TIME SESSION COMPLETED: 915 AM TREATMENT TIME: 0 MINS. CHART REVIEWED. HANNA ROBERT STATES BEDREST 08/18/18, EVALUATION CAN BE COMPLETED 08/19/18. _X_ PT WAS INSTRUCTED TO NOT GET OUT OF BED OR CHAIR WITHOUT ASSISTANCE. CALL MARTE WAS LEFT WITHIN REACH. DISABILITIES ELEMENTS SCORE SELF-FEEDING ____ 4 = INDEPENDENT: EATS FROM A DISH AND DRINKS FROM A CUP OR GLASS PRESENTED IN THE CUSTOMARY MANNER ON TABLE OR TRAY. USES ORDINARY KNIFE, FORK, AND SPOON. ____ 3 = INDEPENDENT WITH DEVICE: USES AN ADAPTIVE OR ASSISTING DEVICE SUCH A STRAW, SPORK, OR ROCKING KNIFE OR REQUIRES MORE THAN A REASONABLE TIME TO EAT. ____ 2 = DEPENDENT PARTIAL HELP REQUIRED: PERFORMS HALF OR MORE OF FEEDING TASKS BUT REQUIRES SUPERVISION (E.G., STANDBY, CUEING, OR COAXING), SETUP (APPLICATION OF ORTHOTICS), OR OTHER HELP. ____ 1 = DEPENDENT TOTAL HELP REQUIRED: EITHER PERFORMS LESS THAN HALF OF FEEDING TASKS, OR DOES NOT EAT OR DRINK FULL MEALS BY MOUTH AND RELIES AT LEAST IN PART ON OTHER MEANS OF ALIMENTATION, SUCH PARENTERAL OR GASTROSTOMY FEEDINGS. INTERDISCIPLINARY COMMUNICATION: RN/ PINKY Therapist: Qing Xiong Signature on file
[2018-08-18] MEDS: Calcium/Vitamin D 250/125 MG Tablet PO SCH (09:14)
--- NOTE | 2018-08-18 10:10 | P.PN ---
Subjective Interval history: Follow-up on patient status post L5-S1 fusion with instrumentation. Patient seen and examined. Patient states overall she feels okay. She states she has some "tenderness" in her low back. She has not had a bowel movement since surgery but is passing gas. She states she has chronic neuropathy in her left foot. She reports slight cough with clear sputum production this morning. She denies any chest pain or shortness of breath. She denies any fever or chills. She denies any nausea, vomiting or abdominal pain. She was able to eat about half of her breakfast. Physical Exam Vital signs: Vital Signs 08/17/18 13:18 08/17/18 13:30 08/17/18 13:45 Temperature 97.4 F L Pulse Rate 96 H 88 86 Respiratory Rate 16 16 16 Blood Pressure 133/60 132/58 L 118/58 L Pulse Oximetry 100 97 96 08/17/18 14:00 08/17/18 14:30 08/17/18 15:00 Temperature Pulse Rate 82 78 78 Respiratory Rate 16 16 16 Blood Pressure 117/59 L 122/61 122/62 Pulse Oximetry 96 96 96 08/17/18 19:19 08/17/18 19:20 08/17/18 19:21 Temperature 97.7 F Pulse Rate 68 Respiratory Rate 18 18 17 Blood Pressure 126/64 Pulse Oximetry 95 08/17/18 22:35 08/17/18 23:00 08/17/18 23:32 Temperature 97.7 F Pulse Rate 65 Respiratory Rate 17 17 17 Blood Pressure 114/55 L Pulse Oximetry 93 L 08/17/18 23:51 08/18/18 02:24 08/18/18 03:26 Temperature 98.0 F Pulse Rate 63 Respiratory Rate 16 17 17 Blood Pressure 115/56 L Pulse Oximetry 94 L 08/18/18 06:20 08/18/18 08:00 Temperature 98 F Pulse Rate 59 L Respiratory Rate 17 20 Blood Pressure 118/56 L Pulse Oximetry 98 Intake & Output 08/17/18 08/18/18 08/18/18 18:59 06:59 18:59 Intake Total 1600 / 1600 490 / 490 Output Total 1100 / 1100 2000 / 2000 Balance 500 / 500 -1510 / -1510 Weight 83.007 kg Intake: IV 250 / 250 Vancomycin Inj 1,000 MG In NS 250 / 250 Inj 250 ML @ 250 mls/hr IV.SIG Q12H [facility] Rx#:[id number] Oral 240 / 240 Anesthesia Amount 1600 / 1600 Output: Estimated Blood Loss 100 / 100 Urine Amount (Catheter) 999 Indwelling Urethral Catheter 999 / 999 Other: Date of Last Bowel Movement 08/15/18 # Bowel Movements 0 Narrative: GENERAL: WDWN female, INAD. Awake and alert. SKIN: Warm and dry. No generalized rash. HEENT: Atraumatic. Normocephalic. Pupils equal and round. No scleral icterus. No injection or drainage. No nasal bleeding or discharge. Mucous membranes pink and moist. NECK: Trachea midline. CARDIOVASCULAR: Regular rate and rhythm. RESPIRATORY: No accessory muscle use. Clear to auscultation. Breath sounds equal bilaterally. GASTROINTESTINAL: Abdomen soft, non-tender, nondistended. +BS. MUSCULOSKELETAL: Extremities without clubbing, cyanosis, or edema. No obvious deformities. NEUROLOGICAL: Awake and alert. No obvious cranial nerve deficits. Motor grossly within normal limits except for decreased strength with left dorsi and plantar flexion. Able to move all extremity spontaneously. Normal speech. PSYCHIATRIC: Appropriate mood and affect; insight and judgment normal. - Urinary Catheter Management Indwelling Urethral Catheter Cath placed during this visit: yes Reason for continuing: Other continuation reason Insertion date: 08/17/18 Insertion time: 09:00 Results - Labs CBC & Chem 7: 08/18/18 06:00 08/18/18 06:00 Laboratory Results - last 24 hr 08/18/18 08/18/18 08/18/18 06:00 06:00 06:00 WBC 12.7 H RBC 3.75 L Hgb 11.5 L Hct 33.7 L MCV 89.9 MCH 30.7 MCHC 34.1 RDW 13.9 Plt Count 216 MPV 9.0 Neut % (Auto) 72.4 H Lymph % (Auto) 21.4 [place] % (Auto) 5.9 Eos % (Auto) 0.1 Baso % (Auto) 0.2 Neut # (Auto) 9.2 H Lymph # (Auto) 2.7 [place] # (Auto) 0.7 Eos # (Auto) 0.0 Baso # (Auto) 0.0 WBC Differential . Differential Comment Auto diff final PT 10.1 INR 1.0 Sodium 144 Potassium 3.6 Chloride 107 Carbon Dioxide 30.5 Anion Gap 7 BUN 12 Creatinine 0.82 Estimated GFR 70 L Random Glucose 109 H Calcium 8.6 Phosphorus 3.3 Magnesium 2.0 Total Bilirubin 0.5 AST 17 ALT 21 Alkaline Phosphatase 76 Total Protein 6.1 L D Albumin 3.0 L D TSH 0.409 Free T4 1.13 Microbiology 08/17/18 07:05 Clean Catch Urine Urine Culture - Preliminary No growth. - Imaging Impressions Lumbar Spine X-Ray 08/17/18 00:00 CONCLUSION: Status post lower lumbar spine fusion at L5 and S1. Assessment and Plan - Plan 67-year-old female who underwent an L5-S1 fusion with instrumentation: DDD lumbar spine s/p L5 to S1 fusion with instrumentation -Management per neurosurgery team -pain management per primary team with bowel regimen -Continue with PT/OT -Monitor wound for healing -Incentive spirometry placed at the bedside, instructed patient on use Encouraged hourly use. Leukocytosis, suspect postop/reactive patient does not appear septic she is afebrile -Monitor vital signs -Monitor white count Hypertension Currently hypotensive, suspect secondary to pain medication -We will hold home antihypertensives for now -Monitor BP and adjust treatment accordingly Dyslipidemia -Continue on statin therapy Chronic kidney disease, stable -Avoid nephrotoxic agent -Continue to monitor kidney function as indicated Bacteruria -UCX with no growth History of skin cancer, stable -Monitor DVT prophylaxis -Per neurosurgery GI prophylaxis -Protonix Code Status: FULL Discussed Condition With: patient Discharge Planning: Discharge planning per primary team
[2018-08-18 17:47] LABS: Hemoglobin A1c 5.8 % (4.3-6.0)
[2018-08-19 05:33] LABS: Baso # (Auto) 0.1 th/mm3 (0.0-0.2); Baso % (Auto) 0.6 % (0.0-2.0); Eos # (Auto) 0.1 th/mm3 (0.0-0.4); Eos % (Auto) 0.9 % (0.0-4.0); Hematocrit 35.7 % (35.0-46.0); Hemoglobin 12.1 gm/dL (11.6-15.3); Lymph # (Auto) 2.7 th/mm3 (1.0-4.8); Lymph % (Auto) 26.5 % (9.0-44.0); Mean Corpuscular HGB Conc 33.9 % (32.0-36.0); Mean Corpuscular Volume 91.3 fL (80.0-100.0); Mean Platelet Volume 8.8 fL (7.0-11.0); Mono # (Auto) 0.8 th/mm3 (0.0-0.9); Mono % (Auto) 7.8 % (0.0-8.0); Neut # (Auto) 6.5 th/mm3 (1.8-7.7); Neut % (Auto) 64.2 % (16.0-70.0); Platelet Count 191 th/mm3 (150-450); Red Blood Count 3.91 mil/mm3 (4.00-5.30); Red Cell Distribution Width 13.9 % (11.6-17.2); White Blood Count 10.1 th/mm3 (4.0-11.0)
--- NOTE | 2018-08-19 09:34 | XR ---
EXAM DATE: 08/19/2018 12:00 AM EDT AGE/SEX: 67 years / Female INDICATIONS: Evaluate for infiltrate. CLINICAL DATA: This is the patient's subsequent encounter. Patient reports that signs and symptoms h ave been present for 3 days and indicates a pain score of 7/10. MEDICAL/SURGICAL HISTORY: Carcinoma, basal cell. Fusion, lumbar. COMPARISON: POI, XR CHEST PA AND LAT, 08/04/2018. . FINDINGS: Minimal parenchymal changes left base. Right lung clear. The heart and pulmonary vascularity are normal. Mild degenerative changes thoracic spine. CONCLUSION: Minimal new parental changes left base. Could be an early inflammatory process. Electronically signed by: Bahman High MD 08/19/2018 9:33 AM EDT
[2018-08-19] MEDS: Calcium/Vitamin D 250/125 MG Tablet PO SCH (10:06)
[2018-08-19] MEDS: Famotidine 20 MG Tablet PO SCH ×2 (10:07→20:03)
[2018-08-19] MEDS: Senna/Docusate Sodium 8.6/50 MG Tablet PO SCH ×2 (10:07→20:03)
--- NOTE | 2018-08-19 10:26 | P.PNNS ---
Subjective Interval history: doing well, increased surgical pain with movement, tried to get up out of bed this morning became lightheaded and dizzy. bp and labs today stable. states she hasn't eaten much as she has not had an appetite. also reports her back brace feels too small. Physical Exam Vital signs: Vital Signs 08/18/18 12:00 08/18/18 16:00 08/18/18 16:03 Temperature 98.4 F 98.8 F Pulse Rate 60 62 Respiratory Rate 20 20 Blood Pressure 126/60 121/65 Pulse Oximetry 95 97 96 08/18/18 20:00 08/19/18 00:00 08/19/18 00:35 Temperature 99.1 F 100.3 F H Pulse Rate 77 78 Respiratory Rate 18 16 16 Blood Pressure 134/61 140/63 Pulse Oximetry 96 95 08/19/18 03:59 08/19/18 08:00 Temperature 100.1 F H 99.1 F Pulse Rate 70 66 Respiratory Rate 18 18 Blood Pressure 125/58 L 126/65 Pulse Oximetry 95 96 Intake & Output 08/18/18 08/19/18 08/19/18 18:59 06:59 18:59 Intake Total 360 / 360 250 / 250 Output Total 2500 / 2500 Balance 360 / 360 -2250 / -2250 Weight 83.3 kg Intake: Oral 360 / 360 250 / 250 Output: Urine 2500 / 2500 Other: Date of Last Bowel Movement 08/15/18 Narrative: Resting in bed NAD pupils equal fluent speech moves upper extremities well moves LE 5/5 except left quads 4/5 with complaints of back pain wound with Optifoam dressing in place, clean dry and intact - Urinary Catheter Management Indwelling Urethral Catheter Cath placed during this visit: yes Reason for continuing: Other continuation reason Insertion date: 08/17/18 Insertion time: 09:00 Assessment and Plan - Plan s/p L5-S1 redo left laminectomy, interbody arthrodhesis using PEEK cage and autologous bone graft, L5-S1 instrumental fixation using transpedicular screws and rods, L5-S1 posterolateral fusion using autologous bone graft and demineralized bone matrix. Microsurgical dissection POD 2, moderate postop pain worse with movement, controlled on BUDGET RECORD CLERK. lightheaded/ dizzy when sat up, vitals stable. Plan: per pt's request keep wynn catheter in today, will dc tomorrow cont postoperative pain control with BUDGET RECORD CLERK today, dc BUDGET RECORD CLERK tomorrow and transition to po meds start mobilizing OOB today with LSO brace, orthotech to reevaluate fit SCDs and TEDs for DVT prophylaxis protonix for GI prophylaxis encourage po intake of food and fluid appreciated medical assistance case mgt for dc planning to SNF anticipate dc wednesday
--- NOTE | 2018-08-19 10:33 | P.PN ---
Subjective Interval history: Follow-up on patient status post L5-S1 fusion with instrumentation. Patient seen and examined. Patient says that this morning she sat up, began having increased back pain, became diaphoretic and felt dizzy. Patient states this resolved when she laid back down. She denies any associated chest pain or shortness of breath. She denies any nausea, vomiting or abdominal pain. She has not had a bowel movement yet but she is passing flatus. Tmax 100.3 Physical Exam Vital signs: Vital Signs 08/18/18 12:00 08/18/18 16:00 08/18/18 16:03 Temperature 98.4 F 98.8 F Pulse Rate 60 62 Respiratory Rate 20 20 Blood Pressure 126/60 121/65 Pulse Oximetry 95 97 96 08/18/18 20:00 08/19/18 00:00 08/19/18 00:35 Temperature 99.1 F 100.3 F H Pulse Rate 77 78 Respiratory Rate 18 16 16 Blood Pressure 134/61 140/63 Pulse Oximetry 96 95 08/19/18 03:59 08/19/18 08:00 Temperature 100.1 F H 99.1 F Pulse Rate 70 66 Respiratory Rate 18 18 Blood Pressure 125/58 L 126/65 Pulse Oximetry 95 96 Intake & Output 08/18/18 08/19/18 08/19/18 18:59 06:59 18:59 Intake Total 360 / 360 250 / 250 Output Total 2500 / 2500 Balance 360 / 360 -2250 / -2250 Weight 83.3 kg Intake: Oral 360 / 360 250 / 250 Output: Urine 2500 / 2500 Other: Date of Last Bowel Movement 08/15/18 Narrative: GENERAL: WDWN female, INAD. Awake and alert. Lying in bed with rag on her head. SKIN: Warm and dry. No generalized rash. HEENT: Atraumatic. Normocephalic. Pupils equal and round. No scleral icterus. No injection or drainage. No nasal bleeding or discharge. Mucous membranes pink and moist. NECK: Trachea midline. CARDIOVASCULAR: Regular rate and rhythm. RESPIRATORY: No accessory muscle use. Clear to auscultation. Breath sounds equal bilaterally. GASTROINTESTINAL: Abdomen soft, non-tender, nondistended. +BS. MUSCULOSKELETAL: Extremities without clubbing, cyanosis, or edema. No obvious deformities. NEUROLOGICAL: Awake and alert. No obvious cranial nerve deficits. Motor grossly within normal limits except for decreased strength with left dorsi and plantar flexion. Able to move all extremity spontaneously. Normal speech. PSYCHIATRIC: Appropriate mood and affect; insight and judgment normal. - Urinary Catheter Management Indwelling Urethral Catheter Cath placed during this visit: yes Reason for continuing: Other continuation reason Insertion date: 08/17/18 Insertion time: 09:00 Results - Labs CBC & Chem 7: 08/19/18 05:00 08/18/18 06:00 Laboratory Results - last 24 hr 08/18/18 08/19/18 06:00 05:00 WBC 10.1 RBC 3.91 L Hgb 12.1 Hct 35.7 MCV 91.3 MCH 31.0 MCHC 33.9 RDW 13.9 Plt Count 191 MPV 8.8 Neut % (Auto) 64.2 Lymph % (Auto) 26.5 [place] % (Auto) 7.8 Eos % (Auto) 0.9 Baso % (Auto) 0.6 Neut # (Auto) 6.5 Lymph # (Auto) 2.7 [place] # (Auto) 0.8 Eos # (Auto) 0.1 Baso # (Auto) 0.1 WBC Differential . Differential Comment Auto diff final Hemoglobin A1c 5.8 Microbiology 08/17/18 07:05 Clean Catch Urine Urine Culture - Final 10-50,000 cfu/mL mixed gram positive zulma (probable contaminants) - Imaging Impressions Chest X-Ray 08/19/18 00:00 CONCLUSION: Minimal new parental changes left base. Could be an early inflammatory process. 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 Leukocytosis, suspect postop/reactive, resolved patient does not appear septic Tmax 100.3, currently afebrile CXR shows new minimal parenchymal changes left base, images reviewed by me -Monitor vital signs -obtain UA -encouraged use of incentive spirometry, Acapella Hypertension -We will hold home antihypertensives for now -Monitor BP and adjust treatment accordingly Dyslipidemia -Continue on statin therapy Chronic kidney disease, stable -Avoid nephrotoxic agent -Continue to monitor kidney function as indicated Bacteruria -UCX 10-50,000 mixed gram zulma, probable contaminants History of skin cancer, stable -Monitor DVT prophylaxis -Per neurosurgery GI prophylaxis -Protonix Code Status: FULL Discussed Condition With: patient Discharge Planning: Discharge planning per primary team
[2018-08-19 12:34] LABS: Bacteria,Urine Rare /hpf; Bilirubin,Urine Negative (Negative); Clarity,Urine Clear (Clear); Color,Urine Straw (Yellw/Straw); Glucose,Urine (UA) Negative (Negative); Leukocyte Esterase,Urine Negative (Negative); Nitrite,Urine Negative (Negative); Specific Gravity,Urine 1.002 (1.002-1.035)
[2018-08-19 16:29] LABS: Baso # (Auto) 0.1 th/mm3 (0.0-0.2); Baso % (Auto) 0.6 % (0.0-2.0); Eos # (Auto) 0.1 th/mm3 (0.0-0.4); Eos % (Auto) 1.1 % (0.0-4.0); Hematocrit 35.5 % (35.0-46.0); Hemoglobin 12.1 gm/dL (11.6-15.3); Lymph # (Auto) 2.7 th/mm3 (1.0-4.8); Lymph % (Auto) 29.2 % (9.0-44.0); Mean Corpuscular Hemoglobin 30.9 pg (27.0-34.0); Mean Platelet Volume 9.3 fL (7.0-11.0); Mono # (Auto) 0.8 th/mm3 (0.0-0.9); Mono % (Auto) 8.2 % (0.0-8.0); Neut # (Auto) 5.7 th/mm3 (1.8-7.7); Neut % (Auto) 60.9 % (16.0-70.0); Platelet Count 180 th/mm3 (150-450); Red Cell Distribution Width 13.7 % (11.6-17.2); White Blood Count 9.3 th/mm3 (4.0-11.0)
[2018-08-19 16:47] LABS: Calcium 8.5 mg/dL (8.5-10.1); Carbon Dioxide 31.5 meq/L (21.0-32.0); Potassium 3.4 meq/L (3.5-5.1)
[2018-08-20 07:03] LABS: Baso % (Auto) 0.5 % (0.0-2.0); Eos # (Auto) 0.2 th/mm3 (0.0-0.4); Eos % (Auto) 1.7 % (0.0-4.0); Hematocrit 36.6 % (35.0-46.0); Hemoglobin 12.5 gm/dL (11.6-15.3); Lymph % (Auto) 32.6 % (9.0-44.0); Mean Corpuscular HGB Conc 34.3 % (32.0-36.0); Mean Corpuscular Hemoglobin 31.6 pg (27.0-34.0); Mean Platelet Volume 9.1 fL (7.0-11.0); Mono # (Auto) 0.7 th/mm3 (0.0-0.9); Mono % (Auto) 8.1 % (0.0-8.0); Neut # (Auto) 5.3 th/mm3 (1.8-7.7); Neut % (Auto) 57.1 % (16.0-70.0); Platelet Count 176 th/mm3 (150-450); Red Blood Count 3.98 mil/mm3 (4.00-5.30); Red Cell Distribution Width 13.7 % (11.6-17.2); White Blood Count 9.2 th/mm3 (4.0-11.0)
[2018-08-20 07:29] LABS: Calcium 9.1 mg/dL (8.5-10.1); Carbon Dioxide 29.8 meq/L (21.0-32.0); Potassium 3.4 meq/L (3.5-5.1)
[2018-08-20] MEDS: Calcium/Vitamin D 250/125 MG Tablet PO SCH (08:46)
[2018-08-20] MEDS: Senna/Docusate Sodium 8.6/50 MG Tablet PO SCH ×2 (08:47→21:02)
[2018-08-20] MEDS: Famotidine 20 MG Tablet PO SCH ×2 (08:47→21:02)
--- NOTE | 2018-08-20 10:21 | P.PN ---
Subjective Interval history: Follow-up on patient status post L5-S1 fusion with instrumentation. Patient seen and examined. Patient states she feels much better today. She got up and went to the bathroom. No BM but passing flatus. She is currently sitting up in bedside chair. She has not had any further episodes of dizziness or diaphoresis. She denies any breathing difficulties. She denies any cough or dyspnea. She denies any chest pain. She denies any N/V or abdominal pain. She says she has been using the IS and Acapella. Physical Exam Vital signs: Vital Signs 08/19/18 12:00 08/19/18 16:00 08/19/18 20:00 Temperature 97.7 F 99.7 F H 98.3 F Pulse Rate 66 74 74 Respiratory Rate 18 18 17 Blood Pressure 120/59 L 136/61 125/59 L Pulse Oximetry 96 93 L 94 L 08/20/18 00:00 08/20/18 04:00 08/20/18 08:00 Temperature 97.8 F 98.1 F 98.2 F Pulse Rate 68 70 71 Respiratory Rate 16 17 16 Blood Pressure 129/60 131/63 110/59 L Pulse Oximetry 94 L 95 91 L Intake & Output 08/19/18 08/20/18 08/20/18 18:59 06:59 18:59 Intake Total 600 / 600 Output Total 1275 / 1275 Balance -675 / -675 Weight 87 kg Intake: Oral 600 / 600 Output: Urine 1275 / 1275 Other: Date of Last Bowel Movement 08/15/18 # Bowel Movements 0 Narrative: GENERAL: WDWN female, INAD. Awake and alert. Sitting up in bedside chair. SKIN: Warm and dry. No generalized rash. HEENT: Atraumatic. Normocephalic. Pupils equal and round. No scleral icterus. No injection or drainage. No nasal bleeding or discharge. Mucous membranes pink and moist. NECK: Trachea midline. CARDIOVASCULAR: Regular rate and rhythm. RESPIRATORY: No accessory muscle use. Clear to auscultation. Breath sounds equal bilaterally. GASTROINTESTINAL: Abdomen soft, non-tender, nondistended. +BS. GENITOURINARY: Wynn in place with clear yellow urine in bag. MUSCULOSKELETAL: Extremities without clubbing, cyanosis, or edema. No obvious deformities. NEUROLOGICAL: Awake and alert. No obvious cranial nerve deficits. Motor grossly within normal limits except for decreased strength with left dorsi and plantar flexion. Able to move all extremity spontaneously. Normal speech. PSYCHIATRIC: Appropriate mood and affect; insight and judgment normal. - Urinary Catheter Management Indwelling Urethral Catheter Cath placed during this visit: yes Reason for continuing: Other continuation reason Insertion date: 08/17/18 Insertion time: 09:00 Results - Labs CBC & Chem 7: 08/20/18 05:42 08/20/18 05:42 Laboratory Results - last 24 hr 08/19/18 08/19/18 08/19/18 11:30 15:00 15:00 WBC 9.3 RBC 3.90 L Hgb 12.1 Hct 35.5 MCV 91.0 MCH 30.9 MCHC 34.0 RDW 13.7 Plt Count 180 MPV 9.3 Neut % (Auto) 60.9 Lymph % (Auto) 29.2 [place] % (Auto) 8.2 H Eos % (Auto) 1.1 Baso % (Auto) 0.6 Neut # (Auto) 5.7 Lymph # (Auto) 2.7 [place] # (Auto) 0.8 Eos # (Auto) 0.1 Baso # (Auto) 0.1 WBC Differential . Differential Comment Auto diff final Sodium 142 Potassium 3.4 L Chloride 103 Carbon Dioxide 31.5 Anion Gap 8 BUN 10 Creatinine 0.82 Estimated GFR 70 L Random Glucose 106 Calcium 8.5 Magnesium Urine Color Straw Urine Clarity Clear Urine pH 7.0 Ur Specific [place] 1.002 Urine Protein Negative Urine Glucose (UA) Negative Urine Ketones Negative Urine Occult Blood Negative Urine Nitrate Negative Urine Bilirubin Negative Urine Urobilinogen Less than 2 Ur Leukocyte Esterase Negative Urine RBC Less than 1 Urine WBC Less than 1 Urine Bacteria Rare H Micro UA Comment Cath-culture ind Ur Microscopic Review Not Reportable Urine Culture Comments Cath-cult indicated 08/20/18 08/20/18 08/20/18 05:42 05:42 05:42 WBC 9.2 RBC 3.98 L Hgb 12.5 Hct 36.6 MCV 92.0 MCH 31.6 MCHC 34.3 RDW 13.7 Plt Count 176 MPV 9.1 Neut % (Auto) 57.1 Lymph % (Auto) 32.6 [place] % (Auto) 8.1 H Eos % (Auto) 1.7 Baso % (Auto) 0.5 Neut # (Auto) 5.3 Lymph # (Auto) 3.0 [place] # (Auto) 0.7 Eos # (Auto) 0.2 Baso # (Auto) 0.0 WBC Differential . Differential Comment Auto diff final Sodium 143 Potassium 3.4 L Chloride 104 Carbon Dioxide 29.8 Anion Gap 9 BUN 12 Creatinine 0.76 Estimated GFR 76 L Random Glucose 107 H Calcium 9.1 Magnesium 2.2 Urine Color Urine Clarity Urine pH Ur Specific [place] Urine Protein Urine Glucose (UA) Urine Ketones Urine Occult Blood Urine Nitrate Urine Bilirubin Urine Urobilinogen Ur Leukocyte Esterase Urine RBC Urine WBC Urine Bacteria Micro UA Comment Ur Microscopic Review Urine Culture Comments Microbiology 08/17/18 07:05 Clean Catch Urine Urine Culture - Final 10-50,000 cfu/mL mixed gram positive zulma (probable contaminants) Assessment and Plan - Plan 67-year-old female who underwent an L5-S1 fusion with instrumentation: Episode of dizziness and diaphoresis when sitting up this morning no cardiac complaints -suspect vasovagal rxn. No further recurrence. 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 -wynn to be removed today Leukocytosis, suspect postop/reactive, resolved patient does not appear septic she has been afebrile x 24hrs O2 sats low this am but patient states her fingers are very cold CXR shows new minimal parenchymal changes left base -Monitor vital signs -continue to use incentive spirometry, Acapella Hypertension BP controlled off of meds -continue to hold home antihypertensives Losartan and HCTZ for now -Monitor BP and adjust treatment accordingly Dyslipidemia -Continue on statin therapy Chronic kidney disease, stable -Avoid nephrotoxic agents -Continue to monitor kidney function as indicated Bacteruria -UCX 10-50,000 mixed gram zulma, probable contaminants Hypokalemia K 3.4 Mag level 2.2 -po K repletion ordered History of skin cancer, stable -Monitor DVT prophylaxis -Per neurosurgery GI prophylaxis -Protonix Code Status: FULL Discussed Condition With: patient Discharge Planning: Discharge planning per primary team - plans to d/c to rehab tomorrow
--- NOTE | 2018-08-20 11:21 | P.PNNS ---
Subjective Interval history: Doing well, ambulated with PT Physical Exam Vital signs: Vital Signs 08/19/18 12:00 08/19/18 16:00 08/19/18 20:00 Temperature 97.7 F 99.7 F H 98.3 F Pulse Rate 66 74 74 Respiratory Rate 18 18 17 Blood Pressure 120/59 L 136/61 125/59 L Pulse Oximetry 96 93 L 94 L 08/20/18 00:00 08/20/18 04:00 08/20/18 08:00 Temperature 97.8 F 98.1 F 98.2 F Pulse Rate 68 70 71 Respiratory Rate 16 17 16 Blood Pressure 129/60 131/63 110/59 L Pulse Oximetry 94 L 95 91 L Intake & Output 08/19/18 08/20/18 08/20/18 18:59 06:59 18:59 Intake Total 600 / 600 Output Total 1275 / 1275 Balance -675 / -675 Weight 87 kg Intake: Oral 600 / 600 Output: Urine 1275 / 1275 Other: Date of Last Bowel Movement 08/15/18 # Bowel Movements 0 Narrative: Dressing c/d/i Full strength UE/LE - Urinary Catheter Management Indwelling Urethral Catheter Cath placed during this visit: yes, but has since been removed by the nurse Reason for continuing: Decision to DC catheter Insertion date: 08/17/18 Insertion time: 09:00 Removal date: 08/20/18 Removal time: 10:00 Assessment and Plan - Plan s/p L5-S1 redo left laminectomy, interbody arthrodhesis using PEEK cage and autologous bone graft, L5-S1 instrumental fixation using transpedicular screws and rods, L5-S1 posterolateral fusion using autologous bone graft and demineralized bone matrix. Microsurgical dissection POD 2, moderate postop pain worse with movement, controlled on MACHINE INSPECTOR. lightheaded/ dizzy when sat up, vitals stable. Plan: d/c wynn and MACHINE INSPECTOR today. continue mobilizing with brace OOB, PT appreciate medical assistance case mgt for dc planning to rehab anticipate dc wednesday
[2018-08-21 08:49] LABS: Calcium 8.7 mg/dL (8.5-10.1); Carbon Dioxide 31.7 meq/L (21.0-32.0); Potassium 3.6 meq/L (3.5-5.1)
--- NOTE | 2018-08-21 09:18 | P.PN ---
Subjective Interval history: Patient doing well, reports pain well controlled with meds. Patient tolerating p.o., voiding/stooling well. No concerns per RN. Physical Exam Vital signs: Vital Signs 08/20/18 12:00 08/20/18 16:00 08/20/18 20:00 Temperature 97.9 F 97.8 F 97.8 F Pulse Rate 72 76 80 Respiratory Rate 17 17 17 Blood Pressure 114/68 117/65 126/59 L Pulse Oximetry 92 L 96 96 08/20/18 21:33 08/21/18 00:00 08/21/18 03:18 Temperature 98.3 F Pulse Rate 77 Respiratory Rate 19 17 18 Blood Pressure 140/68 Pulse Oximetry 95 08/21/18 08:00 08/21/18 08:47 Temperature 97.3 F L Pulse Rate 69 74 Respiratory Rate 17 18 Blood Pressure 117/58 L Pulse Oximetry 95 Intake & Output 08/20/18 08/21/18 08/21/18 18:59 06:59 18:59 Intake Total 480 / 480 Output Total 1550 / 1550 Balance -1070 / -1070 Intake: Oral 480 / 480 Output: Urine 750 / 750 Urine Amount (Catheter) 800 / 800 Indwelling Urethral Catheter 800 / 800 Other: # Voids 2 6 Date of Last Bowel Movement 08/15/18 08/19/18 # Bowel Movements 1 1 Narrative: GENERAL: well nourished female, in NAD, lying comfortably in bed SKIN: Warm and dry. HEAD: Normocephalic. EYES: No scleral icterus. No injection or drainage. NECK: Supple, trachea midline. No JVD or lymphadenopathy. CARDIOVASCULAR: Regular rate and rhythm without murmurs, gallops, or rubs. RESPIRATORY: Breath sounds equal bilaterally. No accessory muscle use. GASTROINTESTINAL: Abdomen soft, non-tender, nondistended. MUSCULOSKELETAL: No cyanosis, or edema. BACK: Nontender without obvious deformity. No CVA tenderness. Dressing C/D/I. - Urinary Catheter Management Indwelling Urethral Catheter Cath placed during this visit: yes, but has since been removed by the nurse Reason for continuing: Decision to DC catheter Insertion date: 08/17/18 Insertion time: 09:00 Removal date: 08/20/18 Removal time: 10:00 Results - Labs CBC & Chem 7: 08/20/18 05:42 08/21/18 07:17 Laboratory Results - last 24 hr 08/20/18 08/21/18 05:42 07:17 Sodium 144 Potassium 3.6 Chloride 103 Carbon Dioxide 31.7 Anion Gap 9 BUN 14 Creatinine 0.89 Estimated GFR 63 L Random Glucose 99 Calcium 8.7 Magnesium 2.2 Microbiology 08/19/18 11:30 Catheterized Urine Urine Culture - Preliminary No growth in 24 hours Assessment and Plan - Assessment (1) H/O laminectomy Code(s): Z98.890 - Other specified postprocedural states Status: Acute - Plan 67-year-old CF with PMHx of HTN, HLD, and CKD who who admitted by NeuroSx for an L5-S1 fusion with instrumentation performed on 08/17, we have been consulted for medical management, HD#5 1. DDD Lumbar Spine s/p L5 to S1 fusion with instrumentation -Management per neurosurgery team -Pain management per primary team with bowel regimen -Continue with PT/OT -Monitor wound for healing -Incentive spirometry placed at the bedside, instructed patient on use Encouraged hourly use. Per neuroSx on 08/20: s/p L5-S1 redo left laminectomy, interbody arthrodhesis using PEEK cage and autologous bone graft, L5-S1 instrumental fixation using transpedicular screws and rods, L5-S1 posterolateral fusion using autologous bone graft and demineralized bone matrix. Microsurgical dissection POD 2, moderate postop pain worse with movement, controlled on NURSERY HAND. lightheaded/ dizzy when sat up, vitals stable. Plan: d/c wynn and NURSERY HAND today. continue mobilizing with brace OOB, PT appreciate medical assistance case mgt for dc planning to rehab anticipate dc wednesday 2. Leukocytosis, suspect postop/reactive, resolved WBC 9.2 on 08/20 Patient afebrile CXR shows new minimal parenchymal changes left base Continue to use incentive spirometry, Acapella 3. Hypertension BP controlled off of meds Continue to hold home antihypertensives Losartan/HCTZ -Monitor BP and adjust treatment accordingly 4. Chronic Kidney Disease, stable -Creatinine 0.89 today -Avoid nephrotoxic agents -Continue to monitor kidney function as indicated 5. Hypokalemia, resolved K 3.6 today F/U BMP in AM 6. History of skin cancer, noted. 7. GERD: cont. Pepcid 8. DVT prophylaxis: SCD's 9. Dispo: cont. IP mgmt, F/U NeuroSx reccs, pending placement for rehab Code Status: full Discussed Condition With: patient, RN
[2018-08-21] MEDS: Calcium/Vitamin D 250/125 MG Tablet PO SCH (09:33)
[2018-08-21] MEDS: Famotidine 20 MG Tablet PO SCH ×2 (09:34→21:25)
[2018-08-21] MEDS: Senna/Docusate Sodium 8.6/50 MG Tablet PO SCH ×2 (09:34→21:26)
--- NOTE | 2018-08-21 11:53 | P.PNNS ---
Subjective Interval history: Stable, ready to go to [facility] Physical Exam Vital signs: Vital Signs 08/20/18 12:00 08/20/18 16:00 08/20/18 20:00 Temperature 97.9 F 97.8 F 97.8 F Pulse Rate 72 76 80 Respiratory Rate 17 17 17 Blood Pressure 114/68 117/65 126/59 L Pulse Oximetry 92 L 96 96 08/20/18 21:33 08/21/18 00:00 08/21/18 03:18 Temperature 98.3 F Pulse Rate 77 Respiratory Rate 19 17 18 Blood Pressure 140/68 Pulse Oximetry 95 08/21/18 08:00 08/21/18 08:47 08/21/18 09:33 Temperature 97.3 F L Pulse Rate 69 74 Respiratory Rate 17 18 18 Blood Pressure 117/58 L Pulse Oximetry 95 08/21/18 09:37 08/21/18 11:42 Temperature Pulse Rate 95 H 75 Respiratory Rate 18 18 Blood Pressure 123/57 L Pulse Oximetry Intake & Output 08/20/18 08/21/18 08/21/18 18:59 06:59 18:59 Intake Total 480 / 480 Output Total 1550 / 1550 Balance -1070 / -1070 Intake: Oral 480 / 480 Output: Urine 750 / 750 Urine Amount (Catheter) 800 / 800 Indwelling Urethral Catheter 800 / 800 Other: # Voids 2 6 Date of Last Bowel Movement 08/15/18 08/19/18 # Bowel Movements 1 1 Narrative: Incision c/d/i Full strength UE/LE - Urinary Catheter Management Indwelling Urethral Catheter Cath placed during this visit: yes, but has since been removed by the nurse Reason for continuing: Decision to DC catheter Insertion date: 08/17/18 Insertion time: 09:00 Removal date: 08/20/18 Removal time: 10:00 Assessment and Plan - Plan s/p L5-S1 redo left laminectomy, interbody arthrodhesis using PEEK cage and autologous bone graft, L5-S1 instrumental fixation using transpedicular screws and rods, L5-S1 posterolateral fusion using autologous bone graft and demineralized bone matrix. Microsurgical dissection POD 3, moderate postop pain worse with movement, controlled on ASSISTANT BOOKKEEPER. lightheaded/ dizzy when sat up, vitals stable. Plan: d/c to SNF today. anticipate dc wednesday
[2018-08-22 06:00] LABS: Baso % (Auto) 0.5 % (0.0-2.0); Eos # (Auto) 0.1 th/mm3 (0.0-0.4); Eos % (Auto) 2.1 % (0.0-4.0); Hematocrit 34.8 % (35.0-46.0); Hemoglobin 11.8 gm/dL (11.6-15.3); Lymph # (Auto) 2.8 th/mm3 (1.0-4.8); Lymph % (Auto) 41.5 % (9.0-44.0); Mean Corpuscular HGB Conc 33.8 % (32.0-36.0); Mean Corpuscular Volume 91.6 fL (80.0-100.0); Mean Platelet Volume 8.9 fL (7.0-11.0); Mono # (Auto) 0.5 th/mm3 (0.0-0.9); Mono % (Auto) 7.7 % (0.0-8.0); Neut # (Auto) 3.3 th/mm3 (1.8-7.7); Neut % (Auto) 48.2 % (16.0-70.0); Platelet Count 193 th/mm3 (150-450); Red Cell Distribution Width 13.5 % (11.6-17.2); White Blood Count 6.9 th/mm3 (4.0-11.0)
[2018-08-22 06:28] LABS: Albumin 2.9 g/dL (3.4-5.0); Anion Gap 8 meq/L (5-15); Aspartate Aminotransferase 43 U/L (15-37); Blood Urea Nitrogen 12 mg/dL (7-18); Carbon Dioxide 32.4 meq/L (21.0-32.0); Chloride 103 meq/L (98-107); Glomerular Filtration Rate 71 mL/min (>89); Glucose,Random 84 mg/dL (74-106); Potassium 3.7 meq/L (3.5-5.1); Sodium 143 meq/L (136-145)
[2018-08-22 06:30] LABS: Alanine Aminotransferase 68 U/L (10-53)
[2018-08-22 06:33] LABS: Alkaline Phosphatase 223 U/L (45-117); Total Protein 6.5 g/dL (6.4-8.2)
[2018-08-22] MEDS: Famotidine 20 MG Tablet PO SCH (08:36)
[2018-08-22] MEDS: Calcium/Vitamin D 250/125 MG Tablet PO SCH (08:36)
[2018-08-22] MEDS: Senna/Docusate Sodium 8.6/50 MG Tablet PO SCH (08:36)
--- NOTE | 2018-08-22 10:54 | P.DS ---
Date of admission: 08/17/18 06:23 Primary care physician: Jamey Feliciano Brief History from admission: 67 y/o F admitted for laminectomy DS: Diagnosis - Discharge Diagnosis (1) Spondylolisthesis Status: Acute Diagnosis: Principal (2) H/O laminectomy Status: Acute Diagnosis: Principal DS: Medications - Discharge Medications Prescriptions: hydrocodone-acetaminophen 1 tab PO Q4-6H PRN #30 tab PRN Reason: Pain Scale 1 To 5 DS: Summary Hospital Course: These are the medical issues addressed during this hospitalization: 67-year-old CF with PMHx of HTN, HLD, and CKD who who admitted by Neuro[facility] for an L5-S1 fusion with instrumentation performed on 08/17, the hospitalist service have been consulted for medical management 1. DDD Lumbar Spine s/pod # 4 L5 to S1 fusion with instrumentation -Postoperative management per neurosurgery team, postoperative care unremarkable. -Pain management per primary team with bowel regimen -Continue with PT/OT -Monitor wound for healing -Incentive spirometry placed at the bedside, Encouraged hourly use. 2. Leukocytosis, suspect postop/reactive, resolved WBC 9.2 on 08/20 Patient afebrile CXR shows new minimal parenchymal changes left base Continue to use incentive spirometry, Acapella 3. Hypertension, chronicessential BP controlled off of meds Continue to hold home antihypertensives Losartan/HCTZ -Monitor BP and adjust treatment accordingly 4. Chronic Kidney Disease, stage II, stable -Avoid nephrotoxic agents -Continue to monitor kidney function as indicated 5. Hypokalemia, resolved 6. GERD: cont. Pepcid 7. DVT prophylaxis: SCD's - Time Spent with Patient Total time spent providing and/or coordinating discharge services: Less than 30 minutes - Quality: VTE Deep Vein Thrombosis/Pulmonary Embolism Present on Admission: No Exam Vital signs: Vital Signs 08/21/18 11:42 08/21/18 11:52 08/21/18 16:00 Temperature 98.3 F 98.5 F Pulse Rate 75 81 87 Respiratory Rate 18 18 16 Blood Pressure 140/58 L 111/63 Pulse Oximetry 93 L 97 08/21/18 19:20 08/21/18 19:53 08/21/18 21:25 Temperature 98.3 F Pulse Rate 81 81 Respiratory Rate 18 16 18 Blood Pressure 139/69 Pulse Oximetry 94 L 08/21/18 23:00 08/22/18 00:43 08/22/18 08:00 Temperature 99.1 F 98.5 F Pulse Rate 81 76 Respiratory Rate 18 18 16 Blood Pressure 136/63 140/65 Pulse Oximetry 96 94 L 08/22/18 09:30 Temperature Pulse Rate 87 Respiratory Rate 17 Blood Pressure Pulse Oximetry Intake & Output 08/21/18 08/22/18 08/22/18 18:59 06:59 18:59 Intake Total 960 / 960 360 / 360 Balance 960 / 960 360 / 360 Weight 87 kg Intake: Oral 960 / 960 360 / 360 Other: # Voids 5 2 Date of Last Bowel Movement 08/19/18 08/21/18 08/21/18 # Bowel Movements 1 0 Narrative: GENERAL: This is a well-nourished, well-developed patient, in no apparent distress. RESPIRATORY: Clear to auscultation. MUSCULOSKELETAL: Extremities without clubbing, cyanosis, or edema. Back brace in place, ambulating with assistance of a walker NEURO: Alert & Oriented x4 to person, place, time, situation. Moves all ext x4 Results Procedures completed during hospitalization: Laminectomy with fusion Labs on day of discharge: Labs from last 24 hours 08/22/18 08/22/18 04:40 04:40 WBC 6.9 RBC 3.80 L Hgb 11.8 Hct 34.8 L MCV 91.6 MCH 31.0 MCHC 33.8 RDW 13.5 Plt Count 193 MPV 8.9 Neut % (Auto) 48.2 Lymph % (Auto) 41.5 [place] % (Auto) 7.7 Eos % (Auto) 2.1 Baso % (Auto) 0.5 Neut # (Auto) 3.3 Lymph # (Auto) 2.8 [place] # (Auto) 0.5 Eos # (Auto) 0.1 Baso # (Auto) 0.0 WBC Differential . Differential Comment Auto diff final Sodium 143 Potassium 3.7 Chloride 103 Carbon Dioxide 32.4 H Anion Gap 8 BUN 12 Creatinine 0.81 Estimated GFR 71 L Random Glucose 84 Calcium 9.0 Total Bilirubin 0.6 AST 43 H ALT 68 H Alkaline Phosphatase 223 H Total Protein 6.5 Albumin 2.9 L - Impressions ITS Impressions Lumbar Spine X-Ray 08/17/18 00:00 CONCLUSION: Status post lower lumbar spine fusion at L5 and S1. Chest X-Ray 08/19/18 00:00 CONCLUSION: Minimal new parental changes left base. Could be an early inflammatory process. Discharge Plan - Discharge Disposition Patient Disposition: Discharge to SNF - Discharge Condition Condition: Good - Discharge Order Discharge Orders: Discharge Order (Routine); Ordered 08/21/18 Ordered By: Chris Gotti Neurosurgery Clear for Discharge (Routine); Ordered 08/21/18 Ordered By: Chris Gotti - Physicians Team Attending Provider: Mabel Campbell Other Providers: Venus Donovan ; [facility] ; Mackenzie Davis MD - Rxs /Orders / Referrals /Forms Prescriptions: New hydrocodone-acetaminophen 10-325 mg Tablet 1 tab PO Q4-6H PRN (Reason: Pain Scale 1 To 5) Qty: 30 RF: 0 Continue aspirin [Aspirin Low Dose] 81 mg Tablet,Delayed Release (Dr/Ec) 81 mg PO DAILY calcium carbonate-vitamin D3 [Calcium 600 + D(3)] 600 mg calcium- 200 unit Capsule 1 cap PO DAILY cholecalciferol (vitamin D3) [Vitamin D3] 5,000 unit Tablet 5,000 unit PO EVERY OTHER DAY hydrochlorothiazide 12.5 mg Tablet 12.5 mg PO DAILY losartan 50 mg Tablet 50 mg PO DAILY multivitamin [Daily Multiple] Tablet 1 tab PO DAILY tizanidine 4 mg Tablet 4 mg PO TID PRN (Reason: Pain) Discontinued tramadol 50 mg Tablet 50 mg PO Q4-6H PRN (Reason: Pain) Referrals: Jamey Feliciano [Other] - See Instructions - Discharge Instructions Patient Printed Instructions: Laminectomy (DC), Narcotic Pain Management (GEN) , Fall Prevention (GEN), Lumbar Corset (DC) Additional Instructions: Take medications as directed. Follow up as instructed by your providers. Continue to wear lumbar back brace as instructed by your provider. - Post Discharge Care Plan Care Plan Goals: Your Health Problems: back pain, s/p laminectomy Goals to Promote Your Health: * To prevent worsening of your condition * To maintain your health at the optimal level Directions to Meet Your Goals: * Take your medications as prescribed * Follow your dietary instruction * Follow activity as directed * Keep your appointments as scheduled * Take your immunizations and boosters as scheduled * If your symptoms worsen call your PCP * If no PCP go to Urgent Care or Emergency Room Smoking is dangerous to your health. Avoid second hand smoke. You may reach the 24-hour crisis hotline for domestic abuse at .
[2018-08-22 16:04] VITALS: BP 147/63; PULSE 102; RESP 16; TEMP 98.6; O2SAT 92
== END 2018-08-22 17:30 ==
LOC: HSDI 06:23 → EDSTATUS 08:30 → N06 15:43
PROVIDERS: ADMIT Family Medicine; ATTEND Family Medicine